=== PATIENT | female | born 2000 | race Two or more races ===

== ENCOUNTER 2024-08-03 17:44 | Inpatient (IN) | payer MEDICAID, OTHER ==
[~2024-08-03] VITALS: Ht 160 cm; Wt 64.3 kg
[2024-08-03 18:35] LABS: Urine Bacteria None Seen /hpf (None Seen)
[2024-08-03 18:44] LABS: Basophils # (auto) 0 10 ^3/uL (0-0.2); Basophils % (auto) 0.5 % (0.0-2.0); Eosinophils # (auto) 0.1 10 ^3/uL (0-0.8); Eosinophils % (auto) 1.5 % (0.0-7.0); Hematocrit 44.3 % (36.0-46.0); Hemoglobin 14.8 g/dL (12.2-16.2); Lymphocytes # (auto) 1.7 10 ^3/uL (0.4-5.4); Lymphocytes % (auto) 31.6 % (10.0-50.0); Mean Corpuscular Hemoglobin 29.9 pg (28.0-32.0); Mean Corpuscular Hgb Conc. 33.3 g/dL (32.0-36.0); Mean Corpuscular Volume 89.8 fL (80.0-100.0); Monocytes # (auto) 0.6 10 ^3/uL (0-1.3); Monocytes % (auto) 11.3 % (0.0-12.0); Neutrophils % (auto) 55.1 % (37.0-80.0); Platelet Count (auto) 110 10^3/uL (140-450); Red Blood Cells 4.93 10^6/uL (4.0-5.20); Red Cell Distribution Width 14.1 % (11.8-14.3); White Blood Cell 5.4 10^3/uL (4.4-10.8)
[2024-08-03 18:59] LABS: Urine Blood 3+ /uL (Negative); Urine Clarity Clear (Clear); Urine Color Colorless (Yellow); Urine Protein, UAD TRACE (Negative); Urine Specific Gravity 1.011 (1.001-1.035); Urine Urobilinogen Normal (Negative); Urine WBC 12 /hpf (0 - 5); Urine pH 7.5 (5.0-9.0)
[2024-08-03 19:01] LABS: Alanine Aminotransferase 79 U/L (7-40); Albumin 4.4 g/dL (3.2-4.8); Alkaline Phosphatase 107 U/L (46-116); Anion Gap 8 (5-15); Aspartate Aminotransferase 72 U/L (13-40); BUN/Creatinine Ratio 12.6 (10.0-20.0); Bilirubin, Total 0.4 mg/dL (0.2-1.0); Blood Urea Nitrogen 17 mg/dL (9-23); Calcium 9.2 mg/dL (8.7-10.4); Carbon Dioxide 22 mmol/L (20-31); Chloride 112 mmol/L (98-107); Glucose 95 mg/dL (74-106); Potassium 3.1 mmol/L (3.5-5.1); Sodium 142 mmol/L (136-145); Total Protein 6.5 g/dL (5.7-8.2)
[2024-08-03 22:56] VITALS: PULSE 88; RESP 16; O2SAT 96
[2024-08-03] MEDS: ONDANSETRON ODT 4 MG TAB PO ONE (22:57)
[2024-08-03] MEDS: HYDROcodone-ACET 5/325MG TAB PO ONE (22:59)
[2024-08-03] MEDS: cefTRIAXone 1GM/50ML D5W 50 ML IV ONE (23:00)
[2024-08-04] MEDS ORDERED: ONDANSETRON HCL 4 MG/2 ML VIAL IV PRN
[2024-08-04 00:24] LABS: INR 1.54 (0.9-1.15); Partial Thromboplastin Time 30.6 SEC (24.5-34.5); Prothrombin Time 15.8 sec (9.3-11.8)
[2024-08-04] MEDS: POTASSIUM EFFERVESENT TAB 25 MEQ PO ONE (00:26)
[2024-08-04] MEDS: TAMSULOSIN HYDROCHLORIDE 0.4 MG CAP PO ONE (02:34)
[2024-08-04 04:10] LABS: Basophils # (auto) 0 10 ^3/uL (0-0.2); Basophils % (auto) 0.5 % (0.0-2.0); Eosinophils # (auto) 0.1 10 ^3/uL (0-0.8); Eosinophils % (auto) 0.8 % (0.0-7.0); Hematocrit 40.2 % (36.0-46.0); Hemoglobin 13.8 g/dL (12.2-16.2); Lymphocytes # (auto) 0.8 10 ^3/uL (0.4-5.4); Lymphocytes % (auto) 13.8 % (10.0-50.0); Mean Corpuscular Hemoglobin 30.6 pg (28.0-32.0); Mean Corpuscular Hgb Conc. 34.4 g/dL (32.0-36.0); Mean Corpuscular Volume 88.8 fL (80.0-100.0); Monocytes # (auto) 0.8 10 ^3/uL (0-1.3); Monocytes % (auto) 14.1 % (0.0-12.0); Neutrophils # (auto) 4.3 10 ^3/uL (1.6-8.6); Neutrophils % (auto) 70.8 % (37.0-80.0); Platelet Count (auto) 106 10^3/uL (140-450); Red Blood Cells 4.52 10^6/uL (4.0-5.20); Red Cell Distribution Width 13.9 % (11.8-14.3)
[2024-08-04 04:18] LABS: Chloride 113 mmol/L (98-107); Potassium 3.9 mmol/L (3.5-5.1); Sodium 141 mmol/L (136-145)
[2024-08-04 04:19] LABS: Anion Gap 6 (5-15); Calcium 9.2 mg/dL (8.7-10.4); Carbon Dioxide 22 mmol/L (20-31)
[2024-08-04 04:24] LABS: BUN/Creatinine Ratio 8.7 (10.0-20.0); Blood Urea Nitrogen 13 mg/dL (9-23); Glucose 107 mg/dL (74-106)
[2024-08-04] MEDS: ERGOCALCIFEROL 50,000 UNIT(1.25MG) CAP PO SCH (05:32)
[2024-08-04] MEDS: PANTOPRAZOLE 40 MG TAB PO SCH (05:33)
[2024-08-04 07:50] VITALS: O2SAT 98
[2024-08-04] MEDS: ACETAMINOPHEN 500 MG TAB PO PRN (07:52)
[2024-08-04] MEDS: LINZESS 72 MCG PO SCH (10:00)
[2024-08-04] MEDS: LACOSAMIDE 50 MG TAB PO SCH (10:07)
[2024-08-04] MEDS: SUCRALFATE 1 GM/10 ML ORAL SUSP PO SCH (10:07)
[2024-08-04] MEDS: HYDROcodone-ACET 5/325MG TAB PO PRN (11:46)
[2024-08-04 14:43] VITALS: BP 112/68; PULSE 68; RESP 18; TEMP 97.9; O2SAT 98
[2024-08-04 15:20] VITALS: BP 111/65; PULSE 88; RESP 16; TEMP 98.8; O2SAT 95
[2024-08-04] MEDS ORDERED: LORazepam 2MG/ML-1ML VIAL IV PRN (15:30)
[2024-08-04] MEDS: cefTRIAXone 1GM/50ML D5W 50 ML IV ONE (16:04)
[2024-08-04 17:00] VITALS: BP 117/68; PULSE 88; RESP 16; TEMP 98.7; O2SAT 96
[2024-08-04] MEDS ORDERED: TAMSULOSIN HYDROCHLORIDE 0.4 MG CAP PO SCH (18:00)
[2024-08-04 20:00] VITALS: RESP 18; O2SAT 97
[2024-08-04] MEDS: OLANZapine 5 MG TAB PO SCH (20:03)
[2024-08-04] MEDS: FLUoxetine HCL 20 MG CAP PO SCH (20:03)
[2024-08-04 20:51] LABS: Sodium Urine 59 mmol/L (40-220)
[2024-08-04 20:57] LABS: Amphetamine Screen, Urine Neg (NEGATIVE)
[2024-08-04 20:58] LABS: Barbiturate Scree,Urine Neg (NEGATIVE); Benzodiazephine Screen, Urine Neg (NEGATIVE); Cocaine Screen, Urine Neg (NEGATIVE); Creatinine, Urine 45.16 mg/dL (30.0-125.0)
[2024-08-04 20:59] LABS: Cannabinoid Screen, Urine Neg (NEGATIVE); Opiate Scree,Urine Neg (NEGATIVE); Phencyclidine Screen, Urine Neg (NEGATIVE)
[2024-08-04 21:00] VITALS: BP 122/76; PULSE 82; RESP 18; TEMP 98.5; O2SAT 96
[2024-08-04] MEDS: MIRTAZAPINE 30 MG TAB PO SCH (21:40)
[2024-08-04] MEDS: ALLOPURINOL 100 MG TAB PO SCH (21:42)
[2024-08-05 04:57] VITALS: BP 109/70; PULSE 83; RESP 17; TEMP 97.8; O2SAT 96
[2024-08-05 05:28] LABS: Basophils # (auto) 0 10 ^3/uL (0-0.2); Basophils % (auto) 0.3 % (0.0-2.0); Eosinophils # (auto) 0.1 10 ^3/uL (0-0.8); Eosinophils % (auto) 0.8 % (0.0-7.0); Hemoglobin 14.1 g/dL (12.2-16.2); Mean Corpuscular Hemoglobin 30.2 pg (28.0-32.0); Mean Corpuscular Hgb Conc. 33.7 g/dL (32.0-36.0); Mean Corpuscular Volume 89.6 fL (80.0-100.0); Monocytes # (auto) 1.2 10 ^3/uL (0-1.3); Monocytes % (auto) 14.6 % (0.0-12.0); Neutrophils # (auto) 5.8 10 ^3/uL (1.6-8.6); Neutrophils % (auto) 72.3 % (37.0-80.0); Nucleated Red Blood Cells % 0.2 %; Platelet Count (auto) 120 10^3/uL (140-450); Red Blood Cells 4.68 10^6/uL (4.0-5.20); Red Cell Distribution Width 14.2 % (11.8-14.3)
[2024-08-05 05:32] LABS: Anion Gap 5 (5-15); Carbon Dioxide 24 mmol/L (20-31); Chloride 111 mmol/L (98-107); Potassium 3.4 mmol/L (3.5-5.1); Sodium 140 mmol/L (136-145)
[2024-08-05 05:33] LABS: Calcium 9.1 mg/dL (8.7-10.4)
[2024-08-05 05:38] LABS: BUN/Creatinine Ratio 4.3 (10.0-20.0); Blood Urea Nitrogen 9 mg/dL (9-23); Glucose 109 mg/dL (74-106)
[2024-08-05 08:00] VITALS: PULSE 89; RESP 18; O2SAT 97
[2024-08-05 09:00] VITALS: BP 109/56; PULSE 89; RESP 16; TEMP 98.3; O2SAT 95
[2024-08-05] MEDS: cefTRIAXone 1GM/50ML D5W 50 ML IV SCH (09:36)
[2024-08-05] MEDS ORDERED: HYDR-4902 PO (11:43)
[2024-08-05] MEDS ORDERED: CIPR-173 PO (11:50)
[2024-08-05 12:45] VITALS: BP 109/56; PULSE 89; RESP 16; TEMP 98.3; O2SAT 95
[2024-08-05 13:05] VITALS: BP 117/65; PULSE 95; RESP 16; TEMP 98; O2SAT 96
== END 2024-08-05 14:12 | disposition home or self-care (01) | DRG 463 ==
LOC: ER 17:48 → OVERFLOW 23:49 → EAST 08-04 14:05
PROVIDERS: ADMIT Internal Medicine Geriatric Medicine; ATTEND Internal Medicine Geriatric Medicine
DX: N13.6 Pyonephrosis (principal); N17.0 Acute kidney failure with tubular necrosis; D69.6 Thrombocytopenia, unspecified; F25.9 Schizoaffective disorder, unspecified; G40.909 Epilepsy, unspecified, not intractable, without status epilepticus; K21.9 Gastro-esophageal reflux disease without esophagitis; N28.1 Cyst of kidney, acquired; E55.9 Vitamin D deficiency, unspecified; N18.2 Chronic kidney disease, stage 2 (mild); F32.9 Major depressive disorder, single episode, unspecified; K76.0 Fatty (change of) liver, not elsewhere classified; Z87.74 Personal history of (corrected) congenital malformations of heart and circulatory system; Z90.13 Acquired absence of bilateral breasts and nipples
CPT/HCPCS: 36415; 74176; 76700; 80048; 80053; 80307; 81001; 82306; 82570; 82607; 83605; 83735; 84300; 84443; 84702; 85025; 85610; 85730; 86703; 86803; 87040; 87086; 87340; 97163; G0378; Q0162

== ENCOUNTER 2024-09-17 16:52 | Emergency (ER) | payer MEDICAID ==
[~2024-09-17] VITALS: Ht 160 cm; Wt 63.5 kg
[~2024-09-17 16:52] MED LIST: CIPR-173 PO; HYDR-4902 PO
[2024-09-17 17:56] LABS: Basophils # (auto) 0.1 10 ^3/uL (0-0.2); Basophils % (auto) 0.7 % (0.0-2.0); Eosinophils # (auto) 0.1 10 ^3/uL (0-0.8); Eosinophils % (auto) 1.4 % (0.0-7.0); Hematocrit 42.5 % (36.0-46.0); Hemoglobin 14.4 g/dL (12.2-16.2); Lymphocytes # (auto) 1.6 10 ^3/uL (0.4-5.4); Mean Corpuscular Hemoglobin 30.4 pg (28.0-32.0); Mean Corpuscular Hgb Conc. 33.9 g/dL (32.0-36.0); Mean Corpuscular Volume 89.7 fL (80.0-100.0); Monocytes # (auto) 0.7 10 ^3/uL (0-1.3); Monocytes % (auto) 10.4 % (0.0-12.0); Neutrophils # (auto) 4.5 10 ^3/uL (1.6-8.6); Neutrophils % (auto) 64.5 % (37.0-80.0); Nucleated Red Blood Cells % 0.1 %; Platelet Count (auto) 132 10^3/uL (140-450); Red Blood Cells 4.74 10^6/uL (4.0-5.20); Red Cell Distribution Width 13.7 % (11.8-14.3)
[2024-09-17] MEDS: MORPHINE SULFATE 4 MG/ML SYR/VIAL IM ONE (18:00)
[2024-09-17 18:10] LABS: Albumin 4.6 g/dL (3.2-4.8); Alkaline Phosphatase 99 U/L (46-116); Anion Gap 9 (5-15); BUN/Creatinine Ratio 11.9 (10.0-20.0); Blood Urea Nitrogen 19 mg/dL (9-23); Calcium 9.8 mg/dL (8.7-10.4); Carbon Dioxide 26 mmol/L (20-31); Glucose 95 mg/dL (74-106); Sodium 144 mmol/L (136-145)
[2024-09-17 18:11] LABS: Bilirubin, Total 0.4 mg/dL (0.2-1.0); Total Protein 6.8 g/dL (5.7-8.2)
[2024-09-17 18:14] LABS: Alanine Aminotransferase 76 U/L (7-40); Aspartate Aminotransferase 78 U/L (13-40); Chloride 109 mmol/L (98-107); Potassium 3.5 mmol/L (3.5-5.1)
--- NOTE | 2024-09-17 19:36 | ED.PDOC ---
General HPI Comments 24-year-old female with past medical history pertinent for kidney stones, seizures, presents to ED for intermittent left flank pain x2 months, associated with dysuria, hematuria. Patient reports that she has a 1 cm kidney stone and was seen here and also at [facility], where she was discharged with pain medications. She does follow with Dr. Finney, who was unable to do lithotripsy last time the patient was seen. The patient had a stent placed, however patient is still complaining of pain. She currently rates the pain as 9/10 in severity. She reports taking Freedom without relief of symptoms. Patient denies any fever, nausea, vomiting, chest pain, back pain. No alleviating or aggravating factors. Chief Complaint: Flank Pain Time Seen by MD: 16:55 Primary Care Provider: MARY Reviewed notes: Nurses Notes, Medications, Allergies Allergies: Coded Allergies: NO KNOWN ALLERGIES (Unverified , 08/03/24) Home Meds Active Scripts Ciprofloxacin Hcl (Cipro) 500 Mg Tab, 500 MG PO BID for 10 Days, #20 TAB Prov:CORONA BREAUX RESIDENT 08/05/24 Hydrocodone-Acetaminophen (Hydrocodone Bitartrate/AC 5-325 mg) 1 Tab Tab, 1 TAB PO Q6HP PRN, #15 TAB Prov:SERGIO MIRAMONTES MD 08/05/24 Mode of Arrival: Ambulatory Past Medical History PAST MEDICAL HISTORY: Kidney Stones, Seizures Surgical History: Denies all surgeries GOVERNMENT GUARD History: No Pertinent GOVERNMENT GUARD History Family History Family History: Reviewed,noncontributory to illness, No family hx of Cancer, No family hx of DM, No family hx of Heart cheryl, No family hx of HTN, No family hx ofKidney cheryl, No family hx of Liver cheryl, No family hx of Lung cheryl, No family hx of Stroke Social History Smoker: Non-Smoker Alcohol: Denies ETOH Use Drugs: Denies Drug Use Constitutional: denies: chills, diaphoresis, fatigue, fever, malaise, sweats, weakness, others EENTM: denies: blurred vision, double vision, ear bleeding, ear discharge, ear drainage, ear pain, ear ringing, eye pain, eye redness, hearing loss, mouth pain, mouth swelling, nasal discharge, nose bleeding, nose congestion, nose pain, photophobia, tearing, throat pain, throat swelling, voice changes, others Respiratory: denies: cough, hemoptysis, orthopnea, SOB at rest, shortness of breath, SOB with excertion, stridor, wheezing, others Cardiovascular: denies: chest pain, dizzy spells, diaphoresis, Dyspnea on exertion, edema, irregular heart beat, left arm pain, lightheadedness, palpitations, PND, syncope, others Gastrointestinal: denies: abdomen distended, abdominal pain, blood streaked bowels, constipated, diarrhea, dysphagia, difficulty swallowing, hematemesis, melena, nausea, poor appetite, poor fluid intake, rectal bleeding, rectal pain, vomiting, others Genitourinary: reports: dysuria, flank pain, hematuria; denies: abnormal vagina bleeding, burning, dyspareunia, frequency, incontinence, pain, , vagina discharge, urgency, others Neurological: denies: dizziness, fainting, headache, left sided numbness, left sided weakness, numbness, paresthesia, pre-existing deficit, right sided numbness, right sided weakness, seizure, speech problems, tingling, tremors, weakness, others Musculoskeletal: denies: back pain, gout, joint pain, joint swelling, muscle pain, muscle stiffness, neck pain, others Integumetry: denies: bruises, change in color, change in hair/nails, dryness, laceration, lesions, lumps, rash, wounds, others Allergic/Immunocompromised: denies: Difficulty Healing, Frequent Infections, Hives, Itching, others Hematologic/Lymphatic: denies: anemia, blood clots, easy bleeding, easy bruising, swollen glands, others Endocrine: denies: excessive hunger, excessive sweating, excessive thirst, excessive urination, flushing, intolerance to cold, intolerance to heat, unexplained weight gain, unexplained weight loss, others Psychiatric: denies: anxiety, bipolar disorder, depression, hopeless, panic disorder, schizophrenia, sleepless, suicidal, others All Other Systems: Reviewed and Negative Physical Exam General Appearance: No Apparent Distress, Normal HEENT: Normal ENT Inspection, Pharynx Normal, TMs Normal Neck: Full Range of Motion, Non-Tender, Normal, Normal Inspection Respiratory: Chest Non-Tender, Lungs Clear, No Accessory Muscle Use, No Respiratory Distress, Normal Breath Sounds Cardiovascular: No Edema, No JVD, No Murmur, No Gallop, Normal Peripheral Pulses, Regular Rate/Rhythm Breast Exam: Deferred Gastrointestinal: No Organomegaly, No Pulsatile Mass, Normal Bowel Sounds, Soft, Tenderness (Mild left-sided CVA tenderness.) Genitalia: Deferred Pelvic: Deferred Rectal: Deferred Extremities: No calf tenderness, Normal capillary refill, Normal inspection, Normal range of motion, Non-tender, No pedal edema Musculoskeletal : Apperance: Normal Neurologic: Alert, rag cutting machine tender II-XII nml as Tested, No Motor Deficits, Normal Affect, Normal Mood, No Sensory Deficits Cerebellar Function: Normal Reflexes: Normal Skin: Dry, Normal Color, Warm Lymphatic: No Adenopathy Was a procedure done? Was a procedure done?: No Differential Diagnosis Kidney stone (Female): Pyelonephritis, Renal failure, Urinary obstruction, Urolithiasis X-Ray, Labs, Meds, VS Vital Signs Date Time Temp Pulse Resp B/P (MAP) Pulse Ox O2 Delivery O2 Flow Rate FiO2 09/17/24 17:02 98.7 103 16 133/74 (93) 96 Lab Test 09/17/24 21:06 09/17/24 17:41 Range/Units Urine Color Red H Yellow Urine Clarity Ex.turbid Clear Urine pH 7.0 5.0-9.0 Urine Specific [place] 1.020 1.001-1.035 Urine Protein 3+ H Negative Urine Ketones Negative Negative Urine Blood 3+ H Negative /uL Urine Nitrite Negative Negative Urine Bilirubin Negative Negative Urine Urobilinogen Normal Negative mg/dL Urine Leukocyte Esterase 2+ Negative /uL Urine RBC 09080 0 - 4 /hpf Urine WBC None seen 0 - 5 /hpf Urine WBC Clumps Present None Seen /hpf Urine Squamous Epithelial Cells None seen <5 /hpf Urine Bacteria None seen None Seen /hpf Urine Glucose 1+ H Normal mg/dL White Blood Count 7.0 4.4-10.8 10^3/uL Red Blood Count 4.74 4.0-5.20 10^6/uL Hemoglobin 14.4 12.2-16.2 g/dL Hematocrit 42.5 36.0-46.0 % Mean Corpuscular Volume 89.7 80.0-100.0 fL Mean Corpuscular Hemoglobin 30.4 28.0-32.0 pg Mean Corpuscular Hemoglobin Concent 33.9 32.0-36.0 g/dL Red Cell Distribution Width 13.7 11.8-14.3 % Platelet Count 132 L 140-450 10^3/uL Mean Platelet Volume 9.3 6.9-10.8 fL Neutrophils (%) (Auto) 64.5 37.0-80.0 % Lymphocytes (%) (Auto) 23.0 10.0-50.0 % Monocytes (%) (Auto) 10.4 0.0-12.0 % Eosinophils (%) (Auto) 1.4 0.0-7.0 % Basophils (%) (Auto) 0.7 0.0-2.0 % Neutrophils # (Auto) 4.5 1.6-8.6 10 ^3/uL Lymphocytes # (Auto) 1.6 0.4-5.4 10 ^3/uL Monocytes # (Auto) 0.7 0-1.3 10 ^3/uL Eosinophils # (Auto) 0.1 0-0.8 10 ^3/uL Basophils # (Auto) 0.1 0-0.2 10 ^3/uL Nucleated Red Blood Cells 0.1 % Sodium Level 144 136-145 mmol/L Potassium Level 3.5 3.5-5.1 mmol/L Chloride Level 109 H 98-107 mmol/L Carbon Dioxide Level 26 20-31 mmol/L Anion Gap 9 5-15 Blood Urea Nitrogen 19 9-23 mg/dL Creatinine 1.60 H 0.550-1.02 mg/dL Glomerular Filtration Rate Calc 46 >90 mL/min BUN/Creatinine Ratio 11.9 10.0-20.0 Serum Glucose 95 74-106 mg/dL Calcium Level 9.8 8.7-10.4 mg/dL Total Bilirubin 0.4 0.2-1.0 mg/dL Aspartate Amino Transferase (AST) 78 H 13-40 U/L Alanine Aminotransferase (ALT) 76 H 7-40 U/L Alkaline Phosphatase 99 46-116 U/L Total Protein 6.8 5.7-8.2 g/dL Albumin 4.6 3.2-4.8 g/dL X-Ray, Labs, Meds, VS Comment CT Abd/Pelv Findings: Evaluation of solid organs is limited due to lack of intravenous contrast use. Lung Bases: No acute or significant lung base finding. Normal heart size. No pleural or pericardial effusion. Liver: The liver is normal in size. No focal lesions. Gallbladder and Biliary Tree: Unremarkable Spleen: Unremarkable Pancreas: The pancreas is grossly normal in appearance. Adrenal Glands: Unremarkable Kidneys: Multiple punctate 1-2 mm stones scattered throughout both kidneys. No hydronephrosis. Left-sided double-J ureteral stent in adequate position. Mild left-sided periureteral and perinephric fat stranding, possibly related to left- sided ureteritis/pyelonephritis. Bladder: Grossly unremarkable for degree of distention. Bowel: The stomach is grossly normal in appearance. Small bowel and colon are normal in caliber and distribution. The appendix is not visualized; however, no secondary findings of acute appendicitis identified. Ascites: Absent Lymphadenopathy: No mesenteric, retroperitoneal or periportal lymphadenopathy. Abdominal Wall and Mesentery: Unremarkable. Vasculature: The visualized abdominal aorta is normal in size and caliber. Evaluation of abdominal and pelvic vessels is limited due to lack of intravenous contrast. Pelvic Organs: Unremarkable Musculoskeletal: No aggressive focal bony lesions, acute fractures or dislocat ion. IMPRESSION: 1. Multiple punctate 1-2 mm stones scattered throughout both kidneys. No significant hydronephrosis. 2. Left-sided double-J ureteral stent appears to be in good position. 3. Mild left-sided periureteral / perinephric fat stranding, possibly related to left-sided ureteritis/pyelonephritis MDM: Patient with history as above presented with left flank pain. History obtained from patient and parent. Patient was nontoxic, stable, afebrile, ambulatory, no acute distress. Exam as above. Labs reviewed. CBC did not show leukocytosis. No anemia. CMP did not show significant electrolyte abnormalities. Creatinine mildly elevated at 1.60. Normal BUN. AST and ALT elevated at 78 and 76. Urinalysis showed 3+ urine blood, 2+ leukocyte esterase, significant amount of RBCs. No WBCs seen. Independently reviewed imaging. CT abdomen/pelvis showed multiple punctate kidney stones. There is no hydronephrosis. There was possibly left-sided urethritis versus pyelonephritis. Reviewed external records. All findings were discussed with the patient. Differential diagnosis considered. Overall presentation is consistent with pyelonephritis. Low suspicion for sepsis, obstructing kidney stone. Patient was treated with morphine with improvement in symptoms. Patient was reevaluated and vital signs were reviewed. Consideration was given for admission, but the patient was stable for outpatient management. Prescribed antibiotics for pyelonephritis treatment. Also increase patient's Freedom dose to 10/325mg. Patient has a follow up appointment with urologist Dr. Finney in four days. Disposition: Discussed the need to follow up diagnostics, including incidental findings. Discharged the patient with instructions to obtain outpatient follow up in 1-2 days of today's symptoms and findings, with strict return precautions if patient develops new or worsening symptoms. This medical document was created using the [employer] system. Although this document has been carefully reviewed, there may still be some phonetic and typographical errors, which are due to imperfections of the software program, and do not reflect any compromise in the patient's medical care. Time of 1ST Reevaluation: 21:23 Reevaluation 1ST: Improved Patient Education/Counseling: Diagnosis, Treatment, Prognosis, Need For Follow Up Family Education/Counseling: Diagnosis, Treatment, Prognosis, Need For Follow Up Departure 1 Departure Time of Disposition: 21:39 Impression: Primary Impression: Pyelonephritis Additional Impression: History of kidney stones Disposition: HOME / SELF CARE / HOMELESS Condition: Fair e-Prescriptions Cefpodoxime Proxetil (Cefpodoxime Proxetil) 200 Mg Tab 1 TAB PO BID, #20 TAB Prov: CARRIE SOOD 09/17/24 Hydrocodone-Acetaminophen (Hydrocodone Bitartrate/AC 10-325 mg) 1 Tab Tab 1 TAB PO Q6HPRN PRN, #15 TAB Prov: CARRIE SOOD 09/17/24 Critical Care Note Critical Care Time?: No Stability Stability form required: No Heart Score Heart Score: Heart Score Response (Comments) Value History N/A 0 EKG N/A 0 Age N/A 0 Risk Factors N/A 0 Troponin N/A 0 Total 0 CARRIE SOOD Sep 17, 2024 19:36
[2024-09-17] MEDS: ONDANSETRON HCL 4 MG/2 ML VIAL IM ONE (19:45)
--- NOTE | 2024-09-17 20:32 | DVH ---
Exam: CT CT AB PEL WO CON-NO ORAL OR IV History: r/o kidney stone Comparison Study: CT CT AB PEL WO CON-NO ORAL OR IV on DOS: 08/03/24 Technique: Multidetector spiral CT of the abdomen was performed from lung bases to pubic symphysis. Imaging was performed without IV contrast. Axial, coronal and sagittal multiplanar reformats were ob tained from the axial data set by the technologist. Radiation Dose : 1. Abdomen/Pelvis: CTDIvol 5.8 mGy, DLP 334 mGy*cm. Findings: Evaluation of solid organs is limited due to lack of intravenous contrast use. Lung Bases: No acute or significant lung base finding. Normal heart size. No pleural or pericardial effusion. Liver: The liver is normal in size. No focal lesions. Gallbladder and Biliary Tree: Unremarkable Spleen: Unremarkable Pancreas: The pancreas is grossly normal in appearance. Adrenal Glands: Unremarkable Kidneys: Multiple punctate 1-2 mm stones scattered throughout both kidneys. No hydronephrosis. Left-s ided double-J ureteral stent in adequate position. Mild left-sided periureteral and perinephric fat s tranding, possibly related to left-sided ureteritis/pyelonephritis. Bladder: Grossly unremarkable for degree of distention. Bowel: The stomach is grossly normal in appearance. Small bowel and colon are normal in caliber and d istribution. The appendix is not visualized; however, no secondary findings of acute appendicitis id entified. Ascites: Absent Lymphadenopathy: No mesenteric, retroperitoneal or periportal lymphadenopathy. Abdominal Wall and Mesentery: Unremarkable. Vasculature: The visualized abdominal aorta is normal in size and caliber. Evaluation of abdominal a nd pelvic vessels is limited due to lack of intravenous contrast. Pelvic Organs: Unremarkable Musculoskeletal: No aggressive focal bony lesions, acute fractures or dislocation. IMPRESSION: 1. Multiple punctate 1-2 mm stones scattered throughout both kidneys. No significant hydronephrosis. 2. Left-sided double-J ureteral stent appears to be in good position. 3. Mild left-sided periureteral / perinephric fat stranding, possibly related to left-sided ureteriti s/pyelonephritis Radiation optimization: All CT scans at this facility use at least one of these dose optimization markos hniques: automated exposure control mA and/or kV adjustment per patient size (includes targeted exam s where dose is matched to clinical indication) or iterative reconstruction.
[2024-09-17 21:07] LABS: Urine Bacteria None Seen /hpf (None Seen); Urine WBC None Seen /hpf (0 - 5)
[2024-09-17 21:23] LABS: Urine Blood 3+ /uL (Negative); Urine Clarity Ex.Turbid (Clear); Urine Color Red (Yellow); Urine Protein, UAD 3+ (Negative); Urine Urobilinogen Normal (Negative); Urine WBC Clumps PRESENT /hpf (None Seen)
[2024-09-17] MEDS ORDERED: CEFP200T15 PO (21:41)
[2024-09-17] MEDS ORDERED: HYDR-4798 PO (21:41)
[2024-09-18 00:25] VITALS: BP 109/79; TEMP 98.9
[2024-09-18 00:26] VITALS: PULSE 86; RESP 16; O2SAT 97
[2024-09-19] MEDS ORDERED: CEFP200T15 PO (15:13)
== END 2024-09-18 00:29 | disposition home or self-care (01) ==
LOC: ER 16:52
DX: N12 Tubulo-interstitial nephritis, not specified as acute or chronic (principal); Z87.442 Personal history of urinary calculi; Z79.899 Other long term (current) drug therapy
CPT/HCPCS: 36415; 74176; 80053; 81001; 85025; 96372; 99285; J2270; J2405